=== PATIENT | male | born 1985 | race Caucasian/White ===

== ENCOUNTER 2017-04-24 17:12 | Emergency (ER) | payer OTHER ==
[2017-04-24 17:25] VITALS: BP 126/63
--- NOTE | 2017-04-24 18:12 | EDM.PDOC ---
ED HPI GENERAL MEDICAL PROBLEM - General Chief Complaint: Lower Extremity Injury/Pain Stated Complaint: Left ankle pain Time Seen by Provider: 04/24/17 17:40 Source of Information: Reports: Patient History Limitations: Reports: No Limitations - History of Present Illness INITIAL COMMENTS - FREE TEXT/NARRATIVE: Felix is a 31 yo male who presents to the ER with complaints of left ankle pain. States this afternoon he slipped getting down and stepped into a hole twisting his ankle. States he has had previous surgery to the ankle with hardware. Is unable to bear weight. States he has a lot of swelling to the outer part of his ankle. Onset: Today Location: Reports: Lower Extremity, Left Quality: Reports: Sharp, Throbbing Improves with: Reports: Immobilization, Rest Worsens with: Reports: Other (ambulation), Movement Context: Reports: Other (working at [employer]) Associated Symptoms: Reports: No Other Symptoms Left Ankle Pain Score (Numeric/FACES): 5 - Related Data Allergies Allergy/AdvReac Type Severity Reaction Status Date / Time No Known Allergies Allergy Verified 04/24/17 17:25 Home Meds: Home Meds . [No Known Home Meds] 04/24/17 [History] Past Medical History HEENT History: Reports: Other (See Below) Other HEENT History: ledt upper eye orbit reconstructive surgery Musculoskeletal History: Reports: Other (See Below) Other Musculoskeletal History: left ankle pins and plates Social & Family History - Tobacco Use Smoking Status *Q: Current Every Day Smoker Years of Tobacco use: 10 Packs/Tins Daily: 0.5 - Recreational Drug Use Recreational Drug Use: No Review of Systems - Review of Systems Review Of Systems: ROS reveals no pertinent complaints other than HPI. ED EXAM, GENERAL - Physical Exam Exam: See Below Exam Limited By: No Limitations General Appearance: Alert, No Apparent Distress Extremities: Joint Swelling (lateral swelling to left ankle, Discomfort with palpation to lateral malleolus/distal fibula), Limited Range of Motion Neurological: No Motor/Sensory Deficits Course - Vital Signs Last Recorded V/S: Last Vital Signs Temp 98.9 F 04/24/17 17:19 Pulse 93 04/24/17 17:19 Resp 20 04/24/17 17:19 BP 126/63 04/24/17 17:19 Pulse Ox 98 04/24/17 17:19 - Orders/Labs/Meds Orders: Active Orders 24 hr Category Date Time Status Ankle Min 3V Lt [CR] Stat Exams 04/24/17 17:29 Taken Departure - Departure Time of Disposition: 18:16 Disposition: Home, Self-Care 01 Condition: Good Clinical Impression: Left ankle sprain Qualifiers: Encounter type: initial encounter Involved ligament of ankle: unspecified ligament Qualified Code(s): S93.402A - Sprain of unspecified ligament of left ankle, initial encounter - Discharge Information Instructions: Ankle Sprain, [id number] Additional Instructions: 1) RICE therapy: Rest, Ice, Compression and Elevation - Ice 20 minutes at a time , 5 times a day 2) Aleve - 2 tablets every 4 hours as needed for pain and swelling 3) Use crutches as needed, encourage bearing weight as soon as tolerated 4) Follow up if any concerns - Problem List & Annotations (1) Left ankle sprain SNOMED Code(s): 41735153 Code(s): S93.402A - SPRAIN OF UNSPECIFIED LIGAMENT OF LEFT ANKLE, INIT ENCNTR Status: Acute Qualifiers: Encounter type: initial encounter Involved ligament of ankle: unspecified ligament Qualified Code(s): S93.402A - Sprain of unspecified ligament of left ankle, initial encounter - Problem List Review Problem List Initiated/Reviewed/Updated: Yes - My Orders Last 24 Hours: My Active Orders 04/24/17 17:29 Ankle Min 3V Lt [CR] Stat - Assessment/Plan Last 24 Hours: My Active Orders 04/24/17 17:29 Ankle Min 3V Lt [CR] Stat Plan: X-rays appeared negative today, pending final radiology report. Will discharge home with crutches and URBANO wrap applied in a figure 8 fashion. Home instructions given.
== END 2017-04-24 18:27 | disposition home or self-care (01) ==
LOC: EDBD → CC.ED 17:12
DX: S93.402A Sprain of unspecified ligament of left ankle, initial encounter (principal); F17.210 Nicotine dependence, cigarettes, uncomplicated; W01.0XXA Fall on same level from slipping, tripping and stumbling without subsequent striking against object, initial encounter
CPT/HCPCS: 73610-LT; 99283

== ENCOUNTER 2018-10-27 08:35 | Emergency (ER) | payer SELFPAY ==
[2018-10-27 08:40] VITALS: BP 148/70
[2018-10-27] MEDS ORDERED: Ibuprofen 200 MG Tab PO ONE (08:45)
[2018-10-27] MEDS ORDERED: Dexamethasone 4 MG/ML SDV IM ONE (08:59)
[2018-10-27] MEDS ORDERED: Albuterol/Ipratropium 3.0-0.5 MG/3 ML Neb Soln NEB ONE (09:00)
--- NOTE | 2018-10-27 09:05 | EDM.PDOC ---
ED HPI GENERAL MEDICAL PROBLEM - General Chief Complaint: Respiratory Problem Stated Complaint: COUGH,MALAISE Time Seen by Provider: 10/27/18 08:56 Source of Information: Reports: Patient - History of Present Illness INITIAL COMMENTS - FREE TEXT/NARRATIVE: Patient is a 33 year old male who presents with a week history of cough congestion and body aches and pains. He states he has also had subjective fever and presents with temperature of 100 today. He also reports that he has had some blood tinges sputum while coughing this am and that made him concerned and brought him to the ER. He states he has sharp pain with cough or deep breath but no shortness of breath. Onset: Gradual Duration: Day(s): Location: Reports: Chest Quality: Reports: Ache, Dull, Sharp Severity: Moderate Improves with: Reports: None Worsens with: Reports: None Associated Symptoms: Reports: Cough Treatments NURSE AIDE: Reports: Aspirin Generalized Pain Score (Numeric/FACES): 6 - Related Data Allergies Allergy/AdvReac Type Severity Reaction Status Date / Time No Known Allergies Allergy Verified 10/27/18 08:40 Home Meds: Home Meds . [No Known Home Meds] 04/24/17 [History] Past Medical History HEENT History: Reports: Other (See Below) Other HEENT History: ledt upper eye orbit reconstructive surgery Musculoskeletal History: Reports: Other (See Below) Other Musculoskeletal History: left ankle pins and plates - History Comment History Comment: reviewed and agree with nursing assessment. Social & Family History - Tobacco Use Smoking Status *Q: Never Smoker - Living Situation & Occupation Living situation: Reports: Single, Alone ED ROS GENERAL - Review of Systems Review Of Systems: See Below Constitutional: Reports: Fever, Malaise. Denies: Night Sweats, Diaphoresis, Decreased Appetite HEENT: Reports: No Symptoms Respiratory: Reports: Pleuritic Chest Pain, Cough, Sputum, Hemoptysis Cardiovascular: Reports: No Symptoms Endocrine: Reports: No Symptoms GI/Abdominal: Reports: No Symptoms Musculoskeletal: Reports: Muscle Pain Skin: Reports: No Symptoms Neurological: Reports: No Symptoms Psychiatric: Reports: No Symptoms ED EXAM, GENERAL - Physical Exam Exam: See Below Exam Limited By: No Limitations General Appearance: Alert, WD/WN, No Apparent Distress Eye Exam: Bilateral Eye: PERRL Ear Exam: Bilateral Ear: Auricle Normal, Canal Normal, TM normal Nose: Normal Inspection, Normal Mucosa, No Blood Throat/Mouth: Normal Inspection, Normal Lips, Normal Teeth, Normal Gums, Normal Oropharynx, Normal Voice, No Airway Compromise Head: Atraumatic, Normocephalic Neck: Normal Inspection, Supple, Non-Tender, Full Range of Motion Respiratory/Chest: No Respiratory Distress, Lungs Clear, Normal Breath Sounds Cardiovascular: Normal Peripheral Pulses, Regular Rate, Rhythm, No Edema, No JVD , No Murmur, No Rub Peripheral Pulses: 4+: Carotid (L), Carotid (R), Brachial (L), Brachial (R), Radial (L), Radial (R) GI/Abdominal: Normal Bowel Sounds, Soft, Non-Tender, No Distention Extremities: Normal Inspection, Normal Range of Motion, Non-Tender Neurological: Alert, Oriented, CN II-XII Intact, Normal Cognition, Normal Gait, Normal Reflexes, No Motor/Sensory Deficits Psychiatric: Normal Affect, Normal Mood Skin Exam: Warm, Dry, Intact, Normal Color Course - Vital Signs Last Recorded V/S: Last Vital Signs Temp 100.6 F 10/27/18 08:51 Pulse 99 10/27/18 08:36 Resp 16 10/27/18 08:36 BP 148/70 H 10/27/18 08:36 Pulse Ox 99 10/27/18 08:36 - Orders/Labs/Meds Orders: Active Orders 24 hr Category Date Time Status RT Aerosol Therapy [RC] ASDIRECTED Care 10/27/18 09:00 Ordered CXR [Chest 2V] [CR] Stat Exams 10/27/18 08:44 Taken INFLUENZA A+B AG SCREEN [RM] Stat Lab 10/27/18 08:50 Received Albuterol/Ipratropium [DuoNeb 3.0-0.5 MG/3 ML] Med 10/27/18 09:00 Once 3 ml NEB ONETIME ONE Meds: Medications Discontinued Medications Generic Name Dose Route Start Last Admin Trade Name Freq PRN Reason Stop Dose Admin Dexamethasone 8 mg 10/27/18 08:59 Dexamethasone IM 10/27/18 09:00 ONETIME ONE Ibuprofen 600 mg 10/27/18 08:45 10/27/18 08:51 Motrin PO 10/27/18 08:46 600 mg ONETIME ONE Administration - Radiology Interpretation Free Text/Narrative:: CXR shows right LL/ ML pneumonia - Re-Assessments/Exams Free Text/Narrative Re-Assessment/Exam: 10/27/18 09:09 Patient was given a decadron shot and a breathing treatment. and has improvement of symptoms - He had chest xray- shows pneumonia- Free Text/Narrative Re-Assessment/Exam: 10/27/18 09:19 Patient will be started on z-pck and prednisone. and given a rocephin shot prior to d/c . He was advised to have repeat cxr in one week to Departure - Departure Time of Disposition: : Disposition: Home, Self-Care 01 Condition: Good Clinical Impression: Pneumonia Qualifiers: Pneumonia type: due to unspecified organism Laterality: right Lung location: lower lobe of lung Qualified Code(s): J18.1 - Lobar pneumonia, unspecified organism - Discharge Information *PRESCRIPTION DRUG MONITORING PROGRAM REVIEWED*: No *COPY OF PRESCRIPTION DRUG MONITORING REPORT IN PATIENT RIVER: No Instructions: Community-Acquired Pneumonia, Adult, [id number] Referrals: Nino Michaud MD [ED Physician] - Additional Instructions: Push clear liquids Take antibiotics till gone Use prednisone as directed. Repeat Chest Xray and one week to ensure clearing of pneumonia tylenol and Motrin for pain / fever Return if worse. - My Orders Last 24 Hours: My Active Orders 10/27/18 08:44 CXR [Chest 2V] [CR] Stat 10/27/18 08:50 INFLUENZA A+B AG SCREEN [RM] Stat 10/27/18 09:00 RT Aerosol Therapy [RC] ASDIRECTED Albuterol/Ipratropium [DuoNeb 3.0-0.5 MG/3 ML] 3 ml NEB ONETIME ONE - Assessment/Plan Last 24 Hours: My Active Orders 10/27/18 08:44 CXR [Chest 2V] [CR] Stat 10/27/18 08:50 INFLUENZA A+B AG SCREEN [RM] Stat 10/27/18 09:00 RT Aerosol Therapy [RC] ASDIRECTED Albuterol/Ipratropium [DuoNeb 3.0-0.5 MG/3 ML] 3 ml NEB ONETIME ONE
[2018-10-27] MEDS ORDERED: Lidocaine 1% 20 ML MDV ONE (09:12)
[2018-10-27] MEDS ORDERED: cefTRIAXone 1 GM Vial IM ONE (09:22)
== END 2018-10-27 09:50 | disposition home or self-care (01) ==
LOC: CC.ED 08:35
DX: J18.1 Lobar pneumonia, unspecified organism (principal)
CPT/HCPCS: 71046; 87804; 94640; 96372; 99283; A9270; J0696; J1100; J7620-GY